=== PATIENT | female | born 1945 | race Caucasian/White ===

== ENCOUNTER → 2017-01-03 | Day surgery (SDC) | payer MEDICARE, OTHER ==
[~2017-01-03] MED LIST: ALDACTAZIDE PO; ATENOLOL PO; ATENOLOL25 MG PO; BACLOFEN10 MG PO; BIOTIN2500 MCG PO; CALCIUM + D 6001 TA1 PO; CELEXA20 MG PO; CYMBALTA PO; EC-NAPROSYN500 MG PO; FLECTOR30 EA TP; HARD NAILS2500 MCG PO; LIORESAL10 MG PO; MAXZIDE 75/50 T1 TA1 PO; MAXZIDE 75/50 T1 TAB PO; MOBIC PO; MONODOX50 M1 PO; MULTI-DAY VITAM1 TAB PO; MULTI-VITAMIN1 TAB PO; NAPROSYN250 M1 PO; NASACORT10.8 ML; NEURONTIN PO; NORCO 5/325 TAB1 TAB PO; OMEGA 3; OMEGA 3 FISH OI1 CAP PO; PREMARIN PO; PREMARIN VAG CR45 GM MC; SINGULAIR PO; VICODIN 5-3001 EACH PO; VIT E PO; VITAMIN D 4001 UDTAB PO; VITAMIN D1000 UNI1 PO; VITAMIN D31000 UNI1 PO; ZYRTEC PO; ZYRTEC10 M2 PO; [UNRECOGNIZED DRUG - OTHER]
--- NOTE | ~2017-01-03 | OR ---
Unit #: [id number] #: [id number] Patient: GRETCHEN MIJARES V [id number] [address] [place], [place] [address] [id number] O MR#: [id number] NAME: GRETCHEN MIJARES V. ROOM: Date of Procedure: 01/03/2017 Admission Date: 01/03/2017 Surgeon: Russ Jane M.D. : 1945 Attending Physician: Russ Jane M.D. Primary Care Physician: Eric Burger M.D. OPERATIVE REPORT JOB NOTE: CC: [facility] PREOPERATIVE DIAGNOSES Spondylolisthesis, degenerative disk disease, spinal stenosis, back pain. POSTOPERATIVE DIAGNOSES Spondylolisthesis, degenerative disk disease, spinal stenosis, back pain. PROCEDURE PERFORMED Lumbar epidural steroid injection with intravenous sedation and fluoroscopic guidance for needle localization. INDICATIONS FOR PROCEDURE The patient is a 71-year-old female with return of back pain associated with previously mentioned nonsurgical diagnosis. She has multilevel significant pathology. She was treated medically and p.r.n. epidural steroid injections. She has gotten from a year to 3 years of improvement in the past. Last injections gave her very good improvement for about 8 months. Pain is got significant over the last month. Based on history of pathology, and symptomatology, as well as available treatment options, we are going to proceed with a repeat epidural steroid injection today. DESCRIPTION OF PROCEDURE The patient was placed in a seated position. Standard monitors were applied. 1 mg of Versed was given for sedation and anxiolysis, which were adequate. Vital signs remained stable. Sterile prep and drape then of lumbar area was performed. The skin then at the L3-L4 level was localized with 1% lidocaine. An 18-gauge Thinkfultead needle was then advanced via loss of resistance technique and fluoroscopic guidance in toward the epidural space. The patient did not complain of pain or paresthesia during needle advancement. After confirming proper positioning with fluoroscopy and radiographic contrast, a dose of 80 mg of Depo-Medrol and 6 mL of 0.125% bupivacaine were deposited. The patient tolerated the procedure otherwise well and was discharged to the recovery room in stable condition. Dictated by... Russ Jane M.D. P/stephaniel Unit #: [id number] #: [id number] Patient: GRETCHEN MIJARES V TD: 01/03/2017 23:55 JOB #: [id number] OPERATIVE REPORT Page 1 of 1 X Russ Jane MD X PROCEDURE OPERATIVE NOTE
== END | disposition home or self-care (01) ==
LOC: CCSC 09:16
DX: M43.16 Spondylolisthesis, lumbar region (principal); M51.36 Other intervertebral disc degeneration, lumbar region; M48.06 Spinal stenosis, lumbar region; I10 Essential (primary) hypertension; J45.909 Unspecified asthma, uncomplicated
CPT/HCPCS: J1040; J2250

== ENCOUNTER → 2017-01-10 | Day surgery (SDC) | payer MEDICARE, OTHER ==
--- NOTE | ~2017-01-10 | OR ---
Unit #: [id number] #: [id number] Patient: GRETCHEN MIJARES V [id number] [address] [place], [place] [address] [id number] O MR#: [id number] NAME: GRETCHEN MIJARES V. ROOM: Date of Procedure: 01/10/2017 Admission Date: 01/10/2017 Surgeon: Russ Jane M.D. : 1945 Attending Physician: Russ Jane M.D. Primary Care Physician: Eric Burger M.D. OPERATIVE REPORT PREOPERATIVE DIAGNOSES Back pain, radiculopathy, spondylolisthesis, degenerative disk disease, spinal stenosis. POSTOPERATIVE DIAGNOSES Back pain, radiculopathy, spondylolisthesis, degenerative disk disease, spinal stenosis. PROCEDURE PERFORMED Lumbar epidural steroid injection with intravenous sedation and fluoroscopic guidance for needle localization. INDICATIONS FOR PROCEDURE The patient is a 71-year-old female with significant severe multilevel multifactorial degenerative disk and spine disease. She is very poor surgical candidate due to this. She has done fairly well with epidural steroids in the past. Last injections were done a little over a year and a half ago. She did quite well without until recently. Repeat injection done last week resulted in fairly good settling of her symptom complex. She is not yet back to normal baseline, so we are going to proceed with a second injection today. DESCRIPTION OF PROCEDURE The patient was placed in a seated position. Standard monitors were applied. 1 mg of Versed was given for sedation and anxiolysis, which were adequate. Vital signs remained stable. Sterile prep and drape then of lumbar area was performed. The skin then at the L3-L4 level was localized with 1% lidocaine. An 18-gauge PageLevertead needle was then advanced via loss of resistance technique and fluoroscopic guidance in toward the epidural space. After confirming proper positioning with fluoroscopy and radiographic contrast, 80 mg of Depo-Medrol and 6 mL of 0.125% bupivacaine were deposited. The patient tolerated the procedure otherwise well and was discharged to the recovery room in stable condition. Dictated by... Russ Jane M.D. LHP/stephaniel TD: 01/10/2017 22:50 Unit #: [id number] #: [id number] Patient: GRETCHEN MIJARES V JOB #: [id number] OPERATIVE REPORT Page 1 of 1 X Russ Jane MD X PROCEDURE OPERATIVE NOTE
== END | disposition home or self-care (01) ==
LOC: CCSC 09:29
DX: M43.16 Spondylolisthesis, lumbar region (principal); M51.16 Intervertebral disc disorders with radiculopathy, lumbar region; M48.06 Spinal stenosis, lumbar region
CPT/HCPCS: J1040; J2250